=== PATIENT | female | born 1985 | race Caucasian/White ===

== ENCOUNTER 2017-12-29 09:39 | Observation (INO) | payer OTHER ==
[~2017-12-29] VITALS: Ht 162.6 cm; Wt 113.4 kg
[2017-12-29 09:55] LABS: BASOPHIL (%) 0.4 % (0-1); BASOPHIL COUNT 0.1 K/uL (0-0.1); EOSINOPHIL (%) 2.6 % (0-5); EOSINOPHIL COUNT 0.3 K/uL (0-0.3); HEMATOCRIT 33.7 % (36.0-46.0); HEMOGLOBIN 11.5 G/DL (11.9-15.5); IMMATURE GRANULOCYTE (%) 1.2 % (0.0-0.7); LYMPHOCYTE (%) 21.5 % (15-42); LYMPHOCYTE COUNT 2.7 K/uL (1.0-2.8); MCH 30.7 PG (29.0-34.0); MCHC 34.1 G/DL (30.0-36.0); MCV 89.9 FL (83-99); MONOCYTE (%) 3.2 % (3-12); MONOCYTE COUNT 0.4 K/uL (0-0.8); NEUTROPHIL (%) 71.1 % (45-76); PLATELET COUNT 270 K/uL (156-360); RBC DIS.WIDTH-CV 13.1 % (11.8-14.6); RBC DIS.WIDTH-SD 42.8 % (39-53); RED BLOOD COUNT 3.75 M/uL (3.80-5.20); WHITE BLOOD COUNT 12.6 K/uL (4.1-10.2)
[2017-12-29 10:06] LABS: AMYLASE 62 IU/L (1-118)
[2017-12-29 10:07] LABS: CHLORIDE 108 mEq/L (99-109); POTASSIUM 4.3 mEq/L (3.7-5.4); SODIUM 142 mEq/L (136-147)
[2017-12-29 10:08] LABS: GLUCOSE 113 mg/dL (70-99)
[2017-12-29 10:11] LABS: SERUM ETHYL ALCOHOL < 10 mg/dL
[2017-12-29 10:12] LABS: CREATININE 0.7 mg/dL (0.6-1.3); GFR ESTIMATE (CALCULATED) > 59 mL/min/
[2017-12-29 10:13] LABS: UREA NITROGEN (BUN) 20 mg/dL (9-23)
[2017-12-29 10:15] LABS: LIPASE 14 U/L (1.0-51.0)
[2017-12-29 10:21] LABS: QUANTITATIVE HCG < 4.0 MIU/ML
[2017-12-29] MEDS ORDERED: SERTRALINE HCL50 MG PO (14:48)
[2017-12-29] MEDS ORDERED: ADVIL200 M1 PO (14:49)
[2017-12-29 16:07] VITALS: BP 122/68
[2017-12-29 19:24] VITALS: BP 114/57
[2017-12-29 23:21] VITALS: BP 121/67
[2017-12-30 03:13] VITALS: BP 110/55
[2017-12-30 06:50] LABS: HEMOGLOBIN 9.7 G/DL (11.9-15.5); MCHC 32.3 G/DL (30.0-36.0); MCV 92.9 FL (83-99); PLATELET COUNT 234 K/uL (156-360); RBC DIS.WIDTH-CV 13.7 % (11.8-14.6); RBC DIS.WIDTH-SD 46.7 % (39-53); RED BLOOD COUNT 3.23 M/uL (3.80-5.20); WHITE BLOOD COUNT 7.4 K/uL (4.1-10.2)
[2017-12-30 07:14] LABS: ALBUMIN 3.4 G/DL (3.2-4.8); ALKALINE PHOSPHATASE 59 IU/L (3-129); ALT (GPT) 39 IU/L (3-49); AST (GOT) 32 IU/L (2-34); CHLORIDE 107 MEQ/L (99-109); CREATININE 0.6 MG/DL (0.6-1.3); GFR ESTIMATE (CALCULATED) > 59 mL/min/; GLUCOSE 100 mg/dL (70-99); POTASSIUM 4.2 MEQ/L (3.7-5.4); SODIUM 138 MEQ/L (136-147); TOTAL BILIRUBIN 0.7 MG/DL (0.0-1.0); TOTAL PROTEIN 5.8 G/DL (6.4-8.3); UREA NITROGEN (BUN) 11 mg/dL (9-23)
[2017-12-30 07:23] VITALS: BP 115/61
[2017-12-30 10:56] VITALS: BP 119/68
[2017-12-30] MEDS ORDERED: OXYCODONE HCL5 MG PO (13:21)
[2017-12-30] MEDS ORDERED: DILAUDID2 MG PO (13:21)
[2017-12-30 14:32] VITALS: BP 119/68
== END 2017-12-30 14:44 | disposition home or self-care (01) ==
LOC: TRA 09:39 → EDOF 13:45 → 3EAST 13:45 → ENRESERV 13:57 → 3EAST 15:39
PROVIDERS: Emergency Medicine; Surgery
PROC: 0HQKXZZ Repair Right Lower Leg Skin, External Approach (ICD-10-PCS; principal; 2017-12-29)
DX: S12.191A Other nondisplaced fracture of second cervical vertebra, initial encounter for closed fracture (principal); S06.6X0A Traumatic subarachnoid hemorrhage without loss of consciousness, initial encounter; S81.011A Laceration without foreign body, right knee, initial encounter; M25.522 Pain in left elbow; M25.521 Pain in right elbow; S30.1XXA Contusion of abdominal wall, initial encounter; S40.012A Contusion of left shoulder, initial encounter; F42.9 Obsessive-compulsive disorder, unspecified; F41.9 Anxiety disorder, unspecified; Z87.891 Personal history of nicotine dependence; V49.88XA Car occupant (driver) (passenger) injured in other specified transport accidents, initial encounter; Y92.410 Unspecified street and highway as the place of occurrence of the external cause
CPT/HCPCS: 70450; 70496; 70498; 71260; 72020; 72125; 72129; 72132; 73070; 73560; 74177; 80048; 80053; 81003; 82150; 83690; 84702; 85025; 85027; 86850; 86900; 86901; 99281; 99285; G0378; G0480; G8978 GP CI; G8979 GP CH; G8980 GP CI; G8987 GO CJ; G8988 CI; J0690; J1170; J2405; J3010; J7120